=== PATIENT | female | born 1980 | race African-American/Black ===

== ENCOUNTER 2017-02-10 23:57 | Observation (INO) | payer OTHER ==
[~2017-02-10] VITALS: Ht 154.9 cm; Wt 102.9 kg
[~2017-02-10 23:57] MED LIST: PERCOCET 5/31 TABLET PO
[2017-02-11 00:40] LABS: EOSINOPHIL (%) 1.5 % (0-5); EOSINOPHIL COUNT 0.1 K/uL (0-0.3); HEMATOCRIT 38.9 % (36.0-46.0); IMMATURE GRANULOCYTE (%) 0.2 % (0.0-0.7); INSTRUMENT ABS NEUTROPHIL CT 4.3 K/uL; LYMPHOCYTE COUNT 4.1 K/uL (1.0-2.8); MCH 31.5 PG (29.0-34.0); MCHC 33.7 G/DL (30.0-36.0); MCV 93.5 FL (83-99); MEAN PLAT.VOLUME 12.8 uM^3 (9.5-12.4); MONOCYTE (%) 5.8 % (3-12); MONOCYTE COUNT 0.5 K/uL (0-0.8); NEUTROPHIL (%) 47.2 % (45-76); NEUTROPHIL COUNT 4.3 K/uL (1.8-6.4); PLATELET COUNT 215 K/uL (156-360); RBC DIS.WIDTH-CV 12.8 % (11.8-14.6); RBC DIS.WIDTH-SD 43.5 % (39-53); RED BLOOD COUNT 4.16 M/uL (3.80-5.20); WHITE BLOOD COUNT 9.2 K/uL (4.1-10.2)
[2017-02-11 00:51] LABS: AMYLASE 84 IU/L (1-118); CHLORIDE 107 mEq/L (99-109); POTASSIUM 3.7 mEq/L (3.7-5.4); SODIUM 137 mEq/L (136-147)
[2017-02-11 00:53] LABS: GLUCOSE 136 mg/dL (70-99)
[2017-02-11 00:54] LABS: ANION GAP 11 MEQ/L (2-14)
[2017-02-11 00:56] LABS: SERUM ETHYL ALCOHOL < 10 mg/dL
[2017-02-11 00:57] LABS: GFR ESTIMATE (CALCULATED) > 59 mL/min/
[2017-02-11 00:58] LABS: UREA NITROGEN (BUN) 11 mg/dL (9-23)
[2017-02-11 01:00] LABS: LIPASE 91 U/L (1.0-51.0)
[2017-02-11 01:07] LABS: QUANTITATIVE HCG < 4.0 MIU/ML
[2017-02-11] MEDS ORDERED: ZYRTEC10 M3 PO (01:19)
[2017-02-11] MEDS ORDERED: IBUPROFEN800 MG PO (01:19)
[2017-02-11] MEDS ORDERED: PROZAC20 MG PO (01:20)
[2017-02-11 01:58] VITALS: BP 125/78
[2017-02-11 06:44] LABS: HEMATOCRIT 38.4 % (36.0-46.0); MCH 31.4 PG (29.0-34.0); MCHC 33.3 G/DL (30.0-36.0); MCV 94.1 FL (83-99); RBC DIS.WIDTH-SD 44.3 % (39-53); RED BLOOD COUNT 4.08 M/uL (3.80-5.20); WHITE BLOOD COUNT 8.7 K/uL (4.1-10.2)
[2017-02-11 08:19] LABS: ALKALINE PHOSPHATASE 114 IU/L (3-129); ANION GAP 8 MEQ/L (2-14); CHLORIDE 107 MEQ/L (99-109); GFR ESTIMATE (CALCULATED) > 59 mL/min/; GLUCOSE 115 mg/dL (70-99); SAMPLE HEMOLYSIS CHECK 0; SAMPLE ICTERIC CHECK 0; SAMPLE LIPEMIA CHECK 0; SODIUM 135 MEQ/L (136-147); TOTAL BILIRUBIN 0.3 MG/DL (0.0-1.0); UREA NITROGEN (BUN) 9 mg/dL (9-23)
[2017-02-11 08:20] LABS: POTASSIUM 4.6 MEQ/L (3.7-5.4)
[2017-02-11 08:21] LABS: HEMATOLOGY COMMENT 1 SMEAR COMPATIBLE; PLAT.SUFFICIENCY ADEQUATE; PLATELET COUNT 196 K/uL (156-360)
[2017-02-11 08:33] VITALS: BP 119/78
[2017-02-11] MEDS ORDERED: ENDOCET 5-3251 EACH PO (11:10)
[2017-02-11 12:01] VITALS: BP 122/62
== END 2017-02-11 15:42 | disposition home or self-care (01) ==
LOC: TRA 23:57 → EDOF 02-11 00:30 → 3EAST 02-11 00:30
PROVIDERS: Emergency Medicine; Surgery
DX: S41.102A Unspecified open wound of left upper arm, initial encounter (principal); G89.11 Acute pain due to trauma; X95.9XXA Assault by unspecified firearm discharge, initial encounter; Y93.89 Activity, other specified; Y92.008 Other place in unspecified non-institutional (private) residence as the place of occurrence of the external cause; R20.0 Anesthesia of skin; J45.909 Unspecified asthma, uncomplicated
CPT/HCPCS: 71010; 71275; 73060; 73206; 80048; 80053; 81003; 82150; 83690; 84702; 85025; 85027; 86900; 86901; 99281; 99285; G0378; G0480; J0690; J1650; J2405; J3010